=== PATIENT | male | born 1995 | race Caucasian/White ===

== ENCOUNTER 2019-12-26 09:16 | Outpatient (CLI) | payer BC ==
[2019-12-26] MEDS ORDERED: BARIUM SULFATE 135 ML SUSP.RECON (E-Z-HD) PO ONE (09:45)
== END 2019-12-26 20:44 | disposition home or self-care (01) ==
LOC: SRD 09:16
PROVIDERS: ATTEND Otolaryngology Plastic Surgery within the Head & Neck
DX: R13.10 Dysphagia, unspecified (principal)
CPT/HCPCS: 74220-TC

== ENCOUNTER 2020-02-07 14:14 | Emergency (ER) | payer BC ==
[~2020-02-07] VITALS: Ht 177.8 cm; Wt 83.9 kg
[2020-02-07 14:20] VITALS: BP_SYST 157
--- NOTE | 2020-02-07 14:37 | NUR ---
Patient to ER bed 03 to gown for evaluation. Side rails up.
--- NOTE | 2020-02-07 14:47 | NUR ---
ER at bedside examining patient.
--- NOTE | 2020-02-07 15:00 | NUR ---
PT AAO AND AMBULATORY C/O WORSENING SOB SINCE JULY. PT REPORTS ANXIETY AND RECENTLY WAS SEEN BY PMD AND GIVEN INHALER WITH ANTIBIOTICS. PT V/S STABLE AND SPEAKING IN COMPLETE SENTENCES IN NO APPARENT DISTRESS.
[2020-02-07 15:18] VITALS: BP_SYST 136
--- NOTE | 2020-02-07 15:19 | NUR ---
Patient given written and verbal discharge instructions and verbalizes understanding. ER MD discussed with patient the results and treatment provided. Patient in stable condition. ID arm band removed. Rx of Prednisone and Atarax given. Patient educated on pain management and to follow up with PMD. Pain Scale 0/10. Opportunity for questions provided and answered. Medication side effect fact sheet provided.
== END 2020-02-07 15:19 | disposition home or self-care (01) ==
LOC: SED 14:14
DX: R07.89 Other chest pain (principal); R06.02 Shortness of breath
CPT/HCPCS: 99283